=== PATIENT | male | born 1975 | race Caucasian/White ===

== ENCOUNTER 2017-05-02 12:45 | Day surgery (SDC) | payer OTHER ==
[~2017-05-02 12:45] MED LIST: Lactated Ringers 1,000 ML IV SCH; Sodium Chloride 0.9% 10 ML Syringe FLUSH PRN
--- NOTE | 2017-05-02 13:45 | PCM.HP ---
H&P History of Present Illness - General Date of Service: 05/02/17 Admit Problem/Dx: Admission Diagnosis/Problem Admission Diagnosis/Problem Gastric reflux Source of Information: Patient, Old Records History Limitations: Reports: No Limitations - History of Present Illness Initial Comments - Free Text/Narative: Here for EGD for Chronic GERD; seen in clinic last month. Refer to those notes for details - Related Data Allergies/Adverse Reactions: Allergies Allergy/AdvReac Type Severity Reaction Status Date / Time No Known Allergies Allergy Verified 05/02/17 13:20 Home Medications: Home Meds Allopurinol [Zyloprim] 100 mg PO DAILY 09/02/14 [History] Pantoprazole [ProTONIX] 40 mg PO DAILY 09/02/14 [History] amLODIPine [Norvasc] 10 mg PO DAILY 05/02/17 [History] Past Medical History HEENT History: Reports: Otitis Media Other HEENT History: hoarse voice Cardiovascular History: Reports: Hypertension Respiratory History: Reports: None Gastrointestinal History: Reports: GERD Genitourinary History: Reports: None Musculoskeletal History: Reports: None Neurological History: Reports: None Endocrine/Metabolic History: Reports: Obesity/BMI 30+ Hematologic History: Reports: None Oncologic (Cancer) History: Reports: None Dermatologic History: Reports: None Social & Family History - Tobacco Use Smoking Status *Q: Never Smoker Second Hand Smoke Exposure: No - Caffeine Use Caffeine Use: Reports: Coffee, Soda - Alcohol Use Days Per Week of Alcohol Use: 2 Number of Drinks Per Day: 2 Total Drinks Per Week: 4 - Recreational Drug Use Recreational Drug Use: No Drug Use in Last 12 Months: No - Living Situation & Occupation Living situation: Reports: , with Family Occupation: Employed H&P Review of Systems - Review of Systems: Review Of Systems: ROS reveals no pertinent complaints other than HPI. Exam - Exam Exam: See Below - Vital Signs Vital Signs: Last Vital Signs Temp 97.8 F 05/02/17 13:10 Pulse 92 05/02/17 13:10 Resp 18 05/02/17 13:10 BP 146/78 H 05/02/17 13:10 Pulse Ox 97 05/02/17 13:10 Weight: 102.058 kg - Exam General: Alert, Oriented Lungs: Clear to Auscultation, Normal Respiratory Effort Cardiovascular: Regular Rate, Regular Rhythm GI/Abdominal Exam: Soft, Non-Tender *Q Meaningful Use (ADM) - VTE *Q VTE Criteria *Q: - Stroke *Q Stroke Criteria *Q: - AMI *Q AMI Criteria *Q: Problem List Initiated/Reviewed/Updated: Yes Orders Last 24hrs: Active Orders 24 hr Category Date Time Status Patient Status [ADT] Routine ADT 05/02/17 12:30 Active Peripheral IV Care [RC] . DIRECTED Care 05/02/17 12:30 Active Verify Patient Consent Obtain [RC] ASDIRECTED Care 05/02/17 12:30 Active Lactated Ringers [Ringers, Lactated] 1,000 ml Med 05/02/17 12:30 Active IV ASDIRECTED Sodium Chloride 0.9% [Saline Flush] Med 05/02/17 12:30 Active 10 ml FLUSH ASDIRECTED PRN Peripheral IV Insertion Adult [OM.PC] Routine Oth 05/02/17 12:30 Ordered Medication Orders Lactated Ringer's (Ringers, Lactated) 1,000 mls @ 125 mls/hr IV ASDIRECTED [facility] Last Admin: 05/02/17 13:18 Dose: 125 mls/hr Sodium Chloride (Saline Flush) 10 ml FLUSH ASDIRECTED PRN PRN Reason: Keep Vein Open Assessment/Plan Comment:: Chronic GERD OK to proceed with EGD, consent obtained
[2017-05-02] MEDS ORDERED: Midazolam 1 MG/ML 2 ML SDV ONE (13:47)
[2017-05-02] MEDS ORDERED: fentaNYL 100 MCG/2 ML SDV ONE (13:47)
--- NOTE | 2017-05-02 14:33 | PCM.OPNOTE ---
- General Post-Op/Procedure Note Date of Surgery/Procedure: 05/02/17 Operative Procedure(s): EGD with Bx Findings: Large HH Pre Op Diagnosis: GERD Post-Op Diagnosis: Same Anesthesia Technique: MAC Primary Surgeon: Ernie Antunez Anesthesia Provider: Aisha Marques EBL in mLs: 0 Complications: None Condition: Good Free Text/Narrative:: Intake & Output 05/01/17 05/02/17 05/02/17 22:59 06:59 14:59 Intake Total 400 Balance 400
[2017-05-02 17:26] VITALS: BP 130/60
--- NOTE | 2017-05-03 10:09 | OR ---
Date of Procedure: 05/02/2017 PREOPERATIVE DIAGNOSIS: Gastroesophageal reflux disease with large hiatal hernia. POSTOPERATIVE DIAGNOSIS: Gastroesophageal reflux disease with large hiatal hernia. PROCEDURE: EGD with biopsy. ANESTHESIA: IV sedation. PROCEDURE IN DETAIL: The patient was brought to the procedure room where he was placed on his left side after IV sedation was administered. An oral bite block placed. Upper endoscope was advanced into the esophagus under direct vision without difficulty. Vocal cords were viewed and were normal. Scope was advanced into the esophagus. Squamocolumnar junction was identified at 33 cm from the esophagus. I entered the body of the stomach, which was almost entirely above the diaphragm. Most of the antrum below the diaphragm. This corresponds with his upper GI findings of 80% of the stomach in the chest. The scope was advanced to the third portion of the duodenum. Duodenum and pylorus are normal. Antrum is normal. There is some mild inflammation in the body of the stomach and I did take biopsies for pathology. Retroflexion reveals a squamocolumnar junction that appears regular and I do not see evidence of reflux esophagitis or any abnormality such as erosions, ulcerations, or strictures. I did take a few random biopsies from the distal esophagus because of his symptoms. Air was removed from the stomach and the scope withdrawn through the remaining esophagus, which was normal. Vocal cords appeared normal. Patient tolerated the procedure well and returned to recovery in stable condition. The patient is symptomatic from the large hiatal hernia and has not noticed improvement on medications. I feel he will likely need surgery and we will refer him to surgery in [place]. GEORGE CANTU MD /[id number]
== END 2017-05-02 15:47 | disposition home or self-care (01) ==
LOC: LL.SDS 12:45
PROVIDERS: ATTEND Surgery
DX: K20.9 Esophagitis, unspecified (principal); K44.9 Diaphragmatic hernia without obstruction or gangrene
CPT/HCPCS: 00740; 43239; J2250; J3010; J7120

== ENCOUNTER 2022-12-22 10:17 | Emergency (ER) | payer BC ==
[2022-12-22 11:45] VITALS: BP 149/102; PULSE 86
== END 2022-12-22 11:43 | disposition home or self-care (01) ==
LOC: LL.ED 10:17
DX: M70.21 Olecranon bursitis, right elbow (principal); M25.722 Osteophyte, left elbow; I10 Essential (primary) hypertension; K21.9 Gastro-esophageal reflux disease without esophagitis; E66.9 Obesity, unspecified
CPT/HCPCS: 73070-LT; 99283; 99284